=== PATIENT | male | born 1960 | race Two or more races ===

== ENCOUNTER → 2017-02-16 | Outpatient (CLI) | payer OTHER ==
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
== END | disposition home or self-care (01) ==
LOC: CRAD 10:44
DX: M54.2 Cervicalgia (principal); M54.5 Low back pain
CPT/HCPCS: 72040; 72100

== ENCOUNTER 2017-04-18 11:51 | Emergency (ER) | payer OTHER ==
[~2017-04-18] VITALS: Ht 172.7 cm; Wt 74.8 kg
--- NOTE | ~2017-04-18 | CT4 ---
[facility] A Service of [facility] RADIOLOGY TEXT RESULTS PATIENT: AZEEM HALL LOCATION: [facility] : 64 UNIT #: [id number] AGE: [address]: Hailey Barrios APRN SEX: M ORDER DR: [id number] [facility] [address] [place], [place] [address] [id number] E MR#: [id number] Acc #: [id number] NAME: AZEEM HALL : 1960 SEX: M STUDY DATE/TIME: 04/18/2017 13:59 UNIT: [facility] ROOM: STUDY DESCRIPTION: CT Abd and Pelv Wo Cont Attending Physician: Hailey Barrios A.P.R.N. Referring Physician: Samir Sam M.D. Ordering Physician: Jeremiah Leal M.D. Primary Care Physician: Kvng Horton M.D. MEDICAL IMAGING REPORT This report is preliminary unless electronic signature is present EXAMINATION CT abdomen and pelvis without contrast. DATE 04/18/2017 HISTORY 57-year-old male right flank pain, lumbar spine pain, symptoms started yesterday. COMPARISON None. PROCEDURE 3 mm noncontrast axial images through the abdomen and pelvis. Enteric contrast was not administered. Sagittal and coronal reformatted images were obtained. This CT exam was performed with one or more of the following radiation dose reduction techniques: automatic exposure control, adjustment of mA and/or kV according to patient size, and iterative reconstruction. FINDINGS A 2 mm nonobstructing stone is seen within the left lower renal pole. No right renal stone. No ureteral calculus, or hydronephrosis or perinephric inflammation on either side. Lung bases are free of acute airspace disease. Heart size is within normal limits. The noncontrast appearance of the liver, gallbladder, spleen, pancreas and adrenal glands is within normal limits. Unopacified bowel appears grossly nonthickened, nondilated, and noninflamed. What appears to be focal scarring is demonstrated within the left upper [facility] A Service of [facility] RADIOLOGY TEXT RESULTS PATIENT: AZEEM HALL LOCATION: [facility] #: [id number] : [birth year] UNIT #: [id number] AGE: [address]: Hailey Barrios APRN SEX: M ORDER DR: lateral abdominal wall subcutaneous tissues. There is moderate calcific atherosclerosis in the abdominal aorta and common iliac arteries. No aneurysm is seen. PELVIS FINDINGS: Urinary bladder, prostate and rectum are normal. No pelvic adenopathy or free fluid is identified. No acute osseous abnormalities are seen. IMPRESSION 1. No acute findings in the abdomen or pelvis. 2. Tiny nonobstructing left renal stone. 3. Appendix is not visualized but no pericecal inflammation is seen. Dictated by... Sariah Linder M.D. THIS IS AN ELECTRONICALLY VERIFIED REPORT Sariah Linder M.D. at 04/19/2017 2:02 PM ERWIN/nilesh TD: 04/18/2017 17:05 JOB #: [id number] MEDICAL IMAGING REPORT Page 1 of 1 COPY
[2017-04-18 13:37] LABS: URINE SOURCE CLEAN CATCH
[2017-04-18 13:44] LABS: BASOPHIL% 0.4 % (0-2.5); EOSINOPHIL% 0.8 % (0.0-7.0); HEMATOCRIT 40.8 % (38.0-50.0); HEMOGLOBIN 13.8 gm/dL (13.0-16.0); LYMPHOCYTE# 1.7 X10e3 (1.0-3.5); LYMPHOCYTE% 31.7 % (17.0-45.0); MEAN CELL VOLUME 85.1 FL (83-96); MEAN CORPUSCULAR HEMOGLOBIN 28.7 PG (28-34); MEAN CORPUSCULAR HGB CONC 33.7 g/dL (30-36); MEAN PLATELET VOLUME 8.7 FL (6.5-11.5); MONOCYTE# 0.7 X10e3 (0-1.0); NEUTROPHIL% 55.1 % (40-75); PLATELET COUNT 145 X10e3 (140-420); WHITE BLOOD COUNT 5.5 X10e3 (4.0-10.5)
[2017-04-18 13:44] LABS: URINE APPEARANCE CLEAR; URINE BILIRUBIN NEG (NEG); URINE BLOOD TRACE (NEG); URINE COLOR YELLOW; URINE GLUCOSE NEG (NEG); URINE KETONE NEG (NEG); URINE LEUKOCYTE ESTERASE TRACE (NEG); URINE NITRATE NEG (NEG); URINE PH 5.5 (5-8); URINE PROTEIN NEG (NEG); URINE SPECIFIC GRAVITY 1.021 (1.003-1.035); URINE UROBILINOGEN 0.2 MG/DL (NEG)
[2017-04-18 13:45] LABS: DIFF IND NO
[2017-04-18 13:47] LABS: URINE BACTERIA AUWI NEG (NEGATIVE); URINE SQUAMOUS EPITHELIAL CELL NONE SEEN /[HPF]
[2017-04-18 13:50] LABS: CULTURE INDICATED? NO
[2017-04-18 14:06] LABS: CALCIUM SERUM 9.1 mg/dL (8.4-10.2); CREATININE SERUM 0.8 mg/dL (0.6-1.4); GLOM FILT RATE Estimated 100.6 mL/min (>60); POTASSIUM 4.1 mmol/L (3.5-5.1)
== END 2017-04-18 15:30 | disposition home or self-care (01) ==
LOC: CED 11:51
PROVIDERS: Nurse Practitioner
DX: G89.29 Other chronic pain (principal); M54.5 Low back pain; R10.9 Unspecified abdominal pain; F43.10 Post-traumatic stress disorder, unspecified; I10 Essential (primary) hypertension; F17.210 Nicotine dependence, cigarettes, uncomplicated
CPT/HCPCS: 36415; 74176; 80048; 81003; 85025; 96372; 99284; J2270